=== PATIENT | male | born 1955 | race Caucasian/White ===

== ENCOUNTER 2017-01-05 20:28 | Emergency (ER) | payer MEDICARE ==
[2017-01-05 22:21] VITALS: BP 193/92
--- NOTE | 2017-01-06 00:01 | UC ---
Skin Complaint HPI - HPI Summary HPI Summary: PT P/W RASH AT THE TIP OF HIS PENIS THAT HAS BEEN THERE FOR YEARS, POSSIBLY MANY 20. SOMETIMES IT GETS IRRITATED. PT HAS TRIED NUMEROUS TAOPICAL AGENTS AND EVEN ORAL ABX. NOTHING SEEMS TO HELP. IN THE PAST FEW WEEKS, PT HAS USED LOTION, HYDROCORTIZONE, ANTIFUNGAL CREAM, ASTRINGENT AND VARIOUS OTHER OTC MEDS. PER PT, THEY SEEM TO BE MAKING THE SITUATION WORSE. HE CURRENTLY HAS BURNING IRRITATION OF THE RASH. NO OTHER NEW SX. - History of Current Complaint Chief Complaint: UCSkin Time Seen by Provider: 01/05/17 23:03 Stated Complaint: RASH Hx Obtained From: Patient Onset/Duration: Gradual Onset, Still Present, Worse Since - LAST FEW WEEKS Timing: Constant - BUT FLUCTUATING INTENSITY Onset Severity: Mild Current Severity: Mild Location: Discrete Character: Pain, Redness Aggravating: Other - UNCERTAIN Alleviating: Nothing Associated Signs & Symptoms: Positive: Negative - Allergy/Home Medications Allergies/Adverse Reactions: Allergies Allergy/AdvReac Type Severity Reaction Status Date / Time No Known Allergies Allergy Verified 01/05/17 22:21 Home Medications: Home Medications Lysine [Lysinyl] 01/05/17 [History] Review of Systems Constitutional: Negative Skin: Rash Eyes: Negative ENT: Negative Respiratory: Negative Cardiovascular: Negative Gastrointestinal: Negative Genitourinary: Negative Motor: Negative Neurovascular: Negative Musculoskeletal: Negative Neurological: Negative Psychological: Negative All Other Systems Reviewed And Are Negative: Yes PMH/Surg Hx/FS Hx/Imm Hx Cardiovascular History Of: Reports: Hypertension - Surgical History Surgical History: Yes Surgery Procedure, Year, and Place: Hernia Repair X2 - Family History Known Family History: Positive: Cardiac Disease, Hypertension, Diabetes - Social History Lives: With Family Alcohol Use: Occasionally Substance Use Type: None Smoking Status (MU): Never Smoked Tobacco Physical Exam Triage Information Reviewed: Yes Appearance: Well-Appearing, No Pain Distress, Well-Nourished Vital Signs: Initial Vital Signs Temp 98.2 F 01/05/17 22:15 Pulse 76 01/05/17 22:15 Resp 18 01/05/17 22:15 BP 193/92 01/05/17 22:15 Vital Signs Reviewed: Yes Eyes: Positive: Conjunctiva Clear ENT: Positive: Hearing grossly normal. Negative: Muffled/hoarse voice Neck exam: Normal Neck: Positive: Supple Respiratory: Positive: Lungs clear, Normal breath sounds, No respiratory distress, No accessory muscle use Cardiovascular: Positive: RRR, No Murmur Abdomen Description: Positive: Nontender, Soft. Negative: CVA Tenderness (R), CVA Tenderness (L), Distended, Guarding Musculoskeletal Exam: Normal Neurological: Positive: Alert, Muscle Tone Normal Psychological: Positive: Age Appropriate Behavior Skin: Positive: rashes - QUARTER SIZED MACULAR RASH OVER TIP OF PENIS. NONTENDER. NO BLISTERING, CALOR DRAINAGE. PT WOULD ONLY EXPOSE THE TIP OF HIS PENIS(HE WOULD HAVE BEEN MORE COMFORTABLE WITH A MALE DOCTOR.) HE DECLINED FURTHER EXAM OF HIS GENITALS. Course/Dx - Differential Diagnoses - Skin Complaint Differential Diagnoses: Contact Dermatitis, Tinea, Urticaria - Diagnoses Provider Diagnoses: DERMATITIS Discharge - Discharge Plan Condition: Stable Disposition: HOME Patient Education Materials: Dermatitis (ED) Referrals: Yehuda Llanos MD [Primary Care Provider] - (FOLLOW UP IN 1-2 WEEKS) Additional Instructions: YOU HAVE HAD THIS RASH FOR A LONG TIME, MANY YEARS. YOU HAVE TRIED MANY TYPES OF TOPICAL TREATMENTS RECENTLY. RIGHT NOW IT IS UNCLEAR WHAT TO WHAT EXTENT THE CURRENT STATE OF YOUR RASH IS A RESULT OF YOUR ATTEMPTED TREATMENTS. SO, WE RECOMMEND THAT YOU STOP ALL MEDICATED CREAMS FOR AT LEAST 1 WEEK. YOU CAN, IF YOU LIKE, USE ORGANIC COCONUT OIL. IT WILL LIKELY BE SOOTHING AND SHOULDN'T FURTHER MUDDY THE CLINICAL PICTURE. AFTER 1-2 WEEKS, YOU SHOULD HAVE THE RASH RE-EXAMINED. DISCUSSED, RASHES CAN BE FRUSTRATING FOR PATIENTS BECAUSE A LOT OF DIFFERENT TYPES OF RASHES HAVE SIMILAR FEATURES AND TO A LARGE EXTENT, WE USE EDUCATED TRIAL AND ERROR. SO, IT IS IMPORTANT THAT YOU SEE THE SAME PROVIDER FOR YOUR SUBSEQUENT VISITS SO THAT HE WILL BE ABLE TO KNOW HOW WELL THE CURRENT THERAPY IS WORKING.
== END 2017-01-05 23:54 | disposition home or self-care (01) ==
LOC: UCEAST 20:28
DX: L30.9 Dermatitis, unspecified (principal)
CPT/HCPCS: 87491; 87591; 99212; G0463

== ENCOUNTER 2017-01-18 16:18 | Emergency (ER) | payer MEDICARE ==
[2017-01-18 17:45] VITALS: BP 135/74
--- NOTE | 2017-01-18 18:36 | UC ---
Skin Complaint HPI - HPI Summary HPI Summary: HAD HISTORY OF FUNGAL INFECTION IN GROIN, RESOLVED WITH ANTIFUNGAL CREME, HOWEVER, SEVERAL WEEKS DRY RASH ON (DENS OF) PENIS. NO NEW SEXUAL PARTNER IN DECADES, NOT SEXUALLY ACTIVE IN MONTHS, WITH SAME PARTNER. HAD SOME RELIEF WITH OTC HYDROCORTISONE CREME, BUT SEEMS TO RETURN. BUT VICS ON RASH AND SEEMED TO MAKE IT WORSE. AFRAID TO VISIT PLANT ASSOCIATE BECAUSE HE WOULD LIKE TO BE SEEN BY MALE CLINICIAN. - History of Current Complaint Chief Complaint: UCSkin Time Seen by Provider: 01/18/17 17:49 Stated Complaint: REDNESS/BURNING SKIN Hx Obtained From: Patient Onset/Duration: Gradual Onset, Lasting Weeks Onset Severity: Mild Current Severity: Mild Location: Discrete - DENS OF PENIS Character: Redness Aggravating: Nothing Alleviating: Nothing Associated Signs & Symptoms: Positive: Rash - ERRETHEMATOUS SCALED RASH AT DORSAL DENS OF PENIS Related History: Possible Reaction to: Environmental Exposure - Allergy/Home Medications Allergies/Adverse Reactions: Allergies Allergy/AdvReac Type Severity Reaction Status Date / Time No Known Allergies Allergy Verified 01/18/17 17:35 Home Medications: Home Medications Gabapentin CAP(*) [Neurontin 300 CAP(*)] 1 tab PO DAILY 01/18/17 [History Confirmed 01/18/17] Review of Systems Constitutional: Negative Skin: Rash Eyes: Negative ENT: Negative Respiratory: Negative Cardiovascular: Negative Gastrointestinal: Negative Genitourinary: Negative Motor: Negative Neurovascular: Negative Musculoskeletal: Negative Neurological: Negative Psychological: Negative All Other Systems Reviewed And Are Negative: Yes PMH/Surg Hx/FS Hx/Imm Hx Previously Healthy: Yes Cardiovascular History Of: Reports: Hypertension - Surgical History Surgical History: Yes Surgery Procedure, Year, and Place: Hernia Repair X2 - Family History Known Family History: Positive: Cardiac Disease, Hypertension, Diabetes - Social History Occupation: Employed Full-time Lives: With Family Alcohol Use: Weekly Substance Use Type: None Smoking Status (MU): Never Smoked Tobacco Physical Exam Triage Information Reviewed: Yes Appearance: Well-Appearing, No Pain Distress, Well-Nourished Vital Signs: Initial Vital Signs Temp 98.7 F 01/18/17 17:41 Pulse 80 01/18/17 17:41 Resp 16 01/18/17 17:41 BP 135/74 01/18/17 17:41 Pulse Ox 100 01/18/17 17:41 Vital Signs Reviewed: Yes Eye Exam: Normal Eyes: Positive: Conjunctiva Clear ENT Exam: Normal ENT: Positive: Normal ENT inspection Dental Exam: Normal Neck exam: Normal Neck: Positive: Supple, Nontender, No Lymphadenopathy Respiratory Exam: Normal Respiratory: Positive: Chest non-tender, Lungs clear, Normal breath sounds, No respiratory distress, No accessory muscle use Cardiovascular Exam: Normal Cardiovascular: Positive: RRR, No Murmur, Pulses Normal Abdominal Exam: Normal Abdomen Description: Positive: Nontender, No Organomegaly Musculoskeletal Exam: Normal Neurological Exam: Normal Psychological Exam: Normal Psychological: Positive: Normal Response To Family Skin: Positive: rashes - ERRETHEMATOUS SCALED RASH AT DORSAL DENS OF PENIS Course/Dx - Differential Diagnoses - Skin Complaint Differential Diagnoses: Cellulitis, Contact Dermatitis, Eczema, Impetigo, Medication; Adverse Reaction, MRSA, Scabies, Tinea, Varicella Zoster - Diagnoses Provider Diagnoses: DENS OF PENIS DERMATITIS Discharge - Discharge Plan Condition: Stable Disposition: HOME Prescriptions: Fluconazole [Diflucan 150 MG (NF)] 150 mg PO ONCE #1 tab Triamcinolone 0.1% OINT(NF) [Kenalog 0.1% OINT(NF)] 1 applic .SEE ORDER BID #1 tube Patient Education Materials: Dermatitis (ED) Referrals: Yehuda Llanos MD [Primary Care Provider] - Selma Marcus [Medical Doctor] - Juliane Black MD [Medical Doctor] -
== END 2017-01-18 18:24 | disposition home or self-care (01) ==
LOC: UCEAST 16:18
DX: L30.9 Dermatitis, unspecified (principal)
CPT/HCPCS: 99212; G0463

== ENCOUNTER 2018-07-06 15:06 | Emergency (ER) | payer MEDICARE ==
[2018-07-06 15:21] VITALS: BP 118/71
== END 2018-07-06 15:35 | disposition left against medical advice (07) ==
LOC: UCEAST 15:06
DX: R10.9 Unspecified abdominal pain (principal); Z53.21 Procedure and treatment not carried out due to patient leaving prior to being seen by health care provider